=== PATIENT | male | born 1945 | race Caucasian/White ===

== ENCOUNTER 2020-09-11 18:29 | Observation (INO) | payer OTHER, SELFPAY ==
[2020-09-11] VITALS (9 sets, daily range): BP systolic 120–163; BP diastolic 63–95; PULSE 54–90; RESP 16–26; TEMP 36.3–36.6; O2SAT 95–98; BMI 34.4
--- NOTE | ~2020-09-11 | XR_ITS ---
EXAMINATION: XR hand LT min 3V EXAM DATE: 09/11/2020 19:36 INDICATION: fall; syncopal episode; pain palmar side Lt hand . Initial encounter. TECHNIQUE: Left hand frontal, frontal with ulnar deviation, oblique and lateral projections obtained and reviewed. There is no prior study for comparison. 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 The scapholunate joint space is widened, at least partial dissociation with capitate se ttling. Lateral projection demonstrates abnormal lunate orientation, dorsal intercalated segmental in stability (DISI). This is most likely chronic. Mild to moderate triscaphe and 1st carpometacarpal pr imary osteoarthritis. There is lucency in the distal aspect of the radius at the radiocarpal joint, could be sequela from a n old injury but can't exclude acute fracture. This is seen on the oblique projection for clinical co rrelation, finding indicated. IMPRESSION: 1. Distal radial lucency, age indeterminate fracture. 2. Chronic findings as above. Reviewed, dictated and finalized at location A.
--- NOTE | ~2020-09-11 | XR_ITS ---
EXAMINATION: XR hip RT min 3V w AP pelvis EXAM DATE: 09/11/2020 19:37 INDICATION: Fall, syncope. Right hip pain, replacement. Initial encounter. TECHNIQUE: Right hip frontal, crosstable lateral and 'frog-leg' projections for interpretation. Front al projection pelvis. There is no prior study for comparison. FINDINGS: There is an intact right hip arthroplasty. Surgical changes overlying the left inguinal can al. There is moderate left hip primary osteoarthritis. There are no acute pelvic fractures or disloca tions identified. There is no subcutaneous gas. The soft tissue is unremarkable. There are no rad iopaque foreign bodies. IMPRESSION: Intact right hip arthroplasty. Reviewed, dictated and finalized at location A.
--- NOTE | ~2020-09-11 | CT_ITS ---
EXAMINATION: CT brain wo con, CT cervical spine wo con EXAM DATE: 09/11/2020 19:07 (accession [id number]), 09/11/2020 19:08 (accession [id number]) INDICATION: Fall, head injury. TECHNIQUE: Spiral CT of the head was performed without contrast. Axial, coronal and sagittal images were reviewed. Spiral CT of the cervical spine was performed without contrast. Axial images were rev iewed. Coronal and sagittal reformatted images were also reviewed. The dose-length product (DLP) fo r this examination was 681.00 (accession [id number]), 511.46 (accession [id number]) mGy-cm. The exposure was tailored according to patient size, and iterative reconstruction (ASIR) was used as additional dose reduction technique. There is no prior study for comparison. FINDINGS: HEAD CT: There is small hypodensity in the anterior limb of the left internal capsule, probably an ol d lacunar infarction. There is no acute intraparenchymal hemorrhage. No evidence of intraparenchymal brain mass lesion. No evidence of acute infarction. There is mild periventricular and subcortical h ypodensity, nonspecific but probably related to small vessel ischemic disease. There is mild to mod erate prominence of the sulci and ventricles related to cerebral atrophy. There is intracranial car otid arteriosclerosis. There is no mass effect or midline shift. There is no obstructive hydrocepha avinash suspected. There are no extra-axial collections. There are no acute calvarial fractures. The o rbits are unremarkable. Soft tissue is unremarkable. The visualized sinuses and mastoid air cells a re well aerated. CERVICAL CT: There is no evidence of acute cervical fracture. The odontoid process is intact. Pre-d ens space is normal. Prevertebral soft tissue is normal. There are no soft tissue abnormalities maria isabel ntified. There is no disc space widening or traumatic vertebral body subluxation suspected. Moderat e to severe loss of disc height at C5-6 and 6-7. Overall moderate cervical arthropathy. A detailed l evel by level evaluation of spondylosis can be added as addendum if requested. Goiter. IMPRESSION: 1. No acute intracranial findings or cervical fracture. 2. Age-related intracranial findings. 3. Cervical spondylosis. Reviewed, dictated and finalized at location A. IMPRESSION: 1. No acute intracranial findings or cervical fracture. 2. Age-related intracranial findings. 3. Cervical spondylosis.
--- NOTE | ~2020-09-11 | CT_ITS ---
EXAMINATION: CT lumbar spine jerel gillis EXAM DATE: 09/11/2020 19:12 INDICATION: Fall, low back pain. TECHNIQUE: Spiral CT lumbar spine was performed without contrast. Axial, coronal and sagittal images of the lumbar spine were reviewed. The dose-length product (DLP) for this examination was 1403.31 mGy -cm. The exposure was tailored according to patient size (auto mA exposure control), and iterative r econstruction (ASIR) was used as additional dose reduction technique. There is no prior study for co mparison. FINDINGS: Sacroiliac joints are intact. There is no evidence of acute lumbar fracture. Vertebral body heights are maintained. There is no disc space widening or traumatic vertebral body subluxation suspected. P araspinal soft tissue is unremarkable. There is moderate to severe disc disease at L4-5, mild to mod erate at the other lumbar levels. There is 3 mm retrolisthesis L4 on L5. L5-S1 has moderate to severe facet arthropathy, moderate at the 2 levels above. There is severe central canal stenosis at L3-4, m oderate to severe at L4-5. Fluid density renal lesions, imaged portions are consistent with cysts. S igmoid diverticulosis. A detailed level by level evaluation of spondylosis can be added as addendum if requested. IMPRESSION: 1. No acute lumbar findings. 2. Spondylosis with L3-4 severe central canal stenosis, and moderate to severe at L4-5. Reviewed, dictated and finalized at location A.
--- NOTE | ~2020-09-11 | XR_ITS ---
EXAMINATION: XR shoulder RT min 2V EXAM DATE: 09/11/2020 19:36 INDICATION: Fall; syncopal episode, ant Rt shoulder pain . Initial encounter. TECHNIQUE: The following right shoulder projections obtained: frontal projection with internal rotati on, frontal projection with external rotation, Grashey, and scapular Y view (4+ views). There is no prior study for comparison. FINDINGS: No evidence of right shoulder rotator cuff calcific tendinosis. There is mild acromioclavi cular joint primary osteoarthritis. There are no acute fractures or dislocations identified. There i s no subcutaneous gas. The soft tissue is unremarkable. There are no radiopaque foreign bodies. IMPRESSION: 1. XR shoulder RT min 2V exam without acute osseous findings. Reviewed, dictated and finalized at location A.
--- NOTE | 2020-09-11 18:52 | ECG_ITS ---
Measurements Intervals [place] Rate: 56 P: 79 UT: 260 QRS: -44 QRSD: 108 T: 30 QT: 436 QTc: 422 Interpretive Statements SINUS OR ECTOPIC ATRIAL BRADYCARDIA WITH FIRST DEGREE AV BLOCK LEFT AXIS DEVIATION BASELINE ARTIFACT- I, II, AVR, AVF, V1-V6 ABNORMAL ECG Electronically Signed On 09-12-2020 6:59:28 CDT by Rick Aguillon D.O.
--- NOTE | 2020-09-11 19:45 | ED.GENADULT ---
HPI - General Adult General Chief complaint: Fall Stated complaint: fall- Time Seen by Provider: 09/11/20 18:31 Source: patient, family and RN notes reviewed Mode of arrival: ambulatory Limitations: no limitations History of Present Illness HPI narrative: Patient is 75-year-old male who presents to emergency department for evaluation of having fallen while getting out of the shower notes that he struck his head believes he may have been unconscious for roughly 30 minutes. Patient presents to emergency department noting mild headache where he has a contusion to the forehead with cervical and lumbar back discomfort as well as right shoulder pain noting that he believes he may have dislocated his shoulder which reduced when he moved his arm. Patient also notes mild discomfort to the left hand and to the right hip. Patient notes prior to this fall he had felt fine denies recent illness or other injury or trauma. Patient lives at home by himself. Patient notes he has been able to stand and ambulate since the fall. Is not sure as to whether or not the patient may have actually sustained syncope Related Data Allergies Allergy/AdvReac Type Severity Reaction Status Date / Time No Known Allergies Allergy Verified 09/11/20 21:01 Review of Systems Review of Systems: All systems reviewed & are unremarkable except as noted in HPI and below PMFSH Past Medical History Medical History (Updated 09/11/20 @ 21:11 by Srini Duckworth PA-C) History of hypertension Hyperlipidemia Surgical History Surgical History (Updated 09/11/20 @ 19:49 by Srini Duckworth PA-C) History of right hip replacement Social History Social History (Updated 09/11/20 @ 19:49 by Srini Duckworth PA-C) Smoking status: Never smoker Exam Narrative: Exam Narrative: GENERAL: Well-appearing, well-nourished, and in no acute distress. HEAD: Normocephalic, atraumatic. EYES: PERRLA and EOMI. ENT: Nares clear, no rhinorrhea or epistaxis. Mucous membranes moist. NECK: Supple. No adenopathy or masses. CHEST: Clear to auscultation. No respiratory distress. No wheezes rales or rhonchi HEART: Regular rate and rhythm. No murmur heard. Normal peripheral pulses. ABDOMEN: Soft, nontender, nondistended EXTREMITIES: Normal range of motion. No edema. Midline cervical and lumbar tenderness. No thoracic tenderness. Tenderness of the right shoulder right hip and left hand. Remainder of extremities palpated nontender SKIN: Warm, dry, no rash. NEURO: No focal deficits. Alert and oriented x3. Neurovascularly intact. Cranial nerves II through XII grossly intact. Normal speech. PSYCH: Normal mood and affect. Course Course Emergency Course: Patient was evaluated in the emergency department the only finding is a possible wrist injury patient will be placed in a splint referred to his surgeon for follow-up patient has had bradycardia it is felt safest that the patient should be observed overnight on telemetry given that he could potentially have had syncope. Patient agrees with this patient has been hydrated hemodynamically stable at this time ABCs and vital signs intact and stable Consultations Consultation #1: Discussed case with hospitalist who is agreed to accept the patient would like cardiology consult for the morning Date: 09/11/20 Time: 21:42 Vital Signs Vital signs: Vital Signs Temperature 97.7 F 09/11/20 18:30 Pulse Rate 64 09/11/20 18:30 Respiratory Rate 16 09/11/20 18:30 Blood Pressure 137/83 09/11/20 18:30 Pulse Oximetry 96 09/11/20 18:30 Temperature 97.9 F 09/11/20 20:48 Pulse Rate 56 L 09/11/20 21:00 Respiratory Rate 21 H 09/11/20 21:00 Blood Pressure 163/95 H 09/11/20 21:00 Pulse Oximetry 95 09/11/20 21:00 Medical Decision Making [facility] Narrative Medical decision making narrative: Patient was evaluated after having possible mechanical versus syncopal event patient was down for prolonged period no high risk changes in
[2020-09-11 20:27] LABS: Basophils Absolute Auto 0.1 K/mm3 (0.0-0.1); Basophils Percent Auto 0.6 % (0.2-1.2); Eosinophils Absolute Auto 0.2 K/mm3 (0-0.3); Eosinophils Percent Auto 2.4 % (0-4.4); Hematocrit 40.1 % (42.0-52.0); Immature Granulocyte Absolute 0.05 K/mm3 (0.00-0.031); Immature Granulocyte Percent A 0.5 % (0-0.5); Immature Platelet Fraction Pct 3.7 % (0.9-11.2); Lymphocytes Absolute Auto 2.26 K/mm3 (0.9-3.2); Lymphocytes Percent Auto 24.3 % (18.3-44.2); Mean Corpuscular HGB Conc 34.9 g/dl (32-36); Mean Corpuscular Hemoglobin 34.3 pg (26-34); Mean Corpuscular Volume 98.3 fl (80-100); Mean Platelet Volume 9.5 fl (7.4-10.4); Monocytes Absolute Auto 0.8 K/mm3 (0.1-0.6); Monocytes Percent Auto 8.1 % (2.6-8.5); Neutrophils Percent Auto 64.1 % (45.5-73.1); Platelet Count Result 163 k/mm3 (150-375); Red Blood Count 4.08 M/mm3 (4.6-6.20); Red Cell Distribution Width 11.8 % (11.5-14.5); White Blood Count 9.3 K/mm3 (4.5-10.0)
[2020-09-11 20:35] LABS: Alanine Aminotransferase 18 U/L (4-50); Albumin Level 3.5 g/dL (3.5-5.1); Alkaline Phosphatase 41 U/L (38-126); Anion Gap 2 mmol/L (8-16); Aspartate Amino Transferase 28 U/L (17-59); Bilirubin,Total 0.4 mg/dL (0.2-1.3); Blood Urea Nitrogen 19 mg/dL (9-20); Calcium 8.5 mg/dL (8.4-10.2); Carbon Dioxide 32 mmol/L (22-30); Chloride 106 mmol/L (98-107); Creatine Kinase 124 U/L (55-170); Estimated CRCL calculation 69 ml/min; Estimated Glomerular Filt Rate > 60; Glucose 126 mg/dL (75-110); INR 0.9; Potassium 3.7 mmol/L (3.4-5.0); Prothrombin Time 12.8 Seconds (11.1-14.7); Sodium 140 mmol/L (137-145)
[2020-09-11 20:36] LABS: Partial Thromboplastin Time 22.9 SECONDS (22.3-36.8)
[2020-09-11 20:47] LABS: Troponin I < 0.012 ng/mL (0.000-0.034)
--- NOTE | 2020-09-11 21:01 | PC.NURSE ---
C-Collar in place on this RN's arrival, and remains in place. pt resting in bed without complaints. call light in reach.
--- NOTE | 2020-09-11 21:17 | PC.NURSE ---
Pt's C-Collar removed by GONZÁLEZ Mao.
[2020-09-11 23:30] LABS: Add Urine Microscopic? YES; Appearance Urine Cloudy (Clear); Bacteria Urine Trace /hpf; Bilirubin Urine Negative (Negative); Blood Urine Negative (Negative); Color Urine Yellow (Yellow); Glucose Urine UA 1+ mg/dL (Negative); Ketones Urine Negative (Negative); Leukocyte Esterase Ur Negative LEU/UL (Negative); Mucus Urine Rare /lpf; Nitrate Urine Negative (Negative); Protein Urine 1+ mg/dL (Negative); RBC Urine 0-2 /hpf (0-2); Specific Grav Ur 1.027 (1.001-1.035); WBC Urine 0-3 /hpf
--- NOTE | 2020-09-11 23:38 | ADMGEN ---
This patient, Kelvin Salas, was admitted to Medical Room 251-01. Patient/family oriented to hospital policies and general routines including ID bracelet, bed and alarms, visiting hours, pain management, procedures, bathroom and other care routines, personal items, smoking policy, room service/diet, and visiting hours. Information on how to activate the Rapid Response Team has been discussed. Patient/Family are encouraged to report perceived risks to care and to ask questions if they do not understand what they are told or what they should do.
[2020-09-12] VITALS (7 sets, daily range): BP systolic 144–153; BP diastolic 72–79; PULSE 55–73; RESP 16–20; TEMP 36.8; O2SAT 93–97
[2020-09-12] MEDS: LACTATED RINGERS 1,000 ML 125 ML IV CONT (00:04)
--- NOTE | 2020-09-12 00:32 | PM.IMHP ---
H&P: HPI History of Present Illness Date/Time: 09/12/20 00:32 Chief Complaint: fall Narrative: Patient is 75-year-old male who presents after two falls this afternoon. he states he was going to the bathroom when he slipped and fell forward and hit his head. he does not remember anything after that and woke up approximately about 30-45 Mins. he hit his head and is sore at head. he was also sore in his left hand and right shoulder was sore too. When he tried to get up he felt his shoudler popped but it got back again. when he tried to get out of the shower he slipped again and fell back on the water. he did not hit anythign this time. he has been feeling okay since then but wanted to be checked out and hence came to the ED. he denies having any chest pain or sob. no fever, chils. he is little sore in his right shoulder, neck and his head. no nausea, vomiting, abdominal pain. Review of Systems Review of Systems: Narrative: - CONSTITUTIONAL: Denies weight loss, fever and chills. - HEENT: Denies changes in vision and hearing - RESPIRATORY: Denies SOB and cough. - CV: Denies palpitations and CP. - GI: Denies abdominal pain, nausea, vomiting and diarrhea. - : Denies dysuria and urinary frequency. - MSK: reports myalgia and joint pain. - SKIN: Denies rash and pruritus. - NEUROLOGICAL: reprots headache and denies syncope. - PSYCHIATRIC: Denies recent changes in mood. Denies anxiety and depression. All systems reviewed & are unremarkable except as noted in HPI and below Constitutional: Constitutional: Reports fatigue and Reports weakness Neurologic: Reports weakness Endocrine: Endocrine: Reports fatigue [facility] Past Medical History Medical History (Updated 09/12/20 @ 00:47 by Louis Gee MD) History of hypertension Hyperlipidemia Surgical History Surgical History (Updated 09/11/20 @ 19:49 by Srini Duckworth PA-C) History of right hip replacement Family History Family History (Updated 09/11/20 @ 23:41 by Deanna Rogers RN) Father Cerebrovascular accident Chronic obstructive pulmonary disease Mother Breast cancer Social History Social History (Updated 09/11/20 @ 19:49 by Srini Duckworth PA-C) Smoking status: Never smoker Alcohol intake: never Substance use: never Gender identity (if verbalized by the patient): Male Spiritual care concerns: No Meds Home Medications and Allergies Home Medications Medication Instructions Recorded Confirmed Type Calcium Citrate + D 1 tablet PO DAILY 09/12/20 09/12/20 History allopurinol 100 mg PO BID 09/12/20 09/12/20 History hydrocodone-acetaminophen 1 tablet PO QID 09/12/20 09/12/20 History lisinopril 20 mg PO DAILY 09/12/20 09/12/20 History propranolol 80 mg PO DAILY 09/12/20 09/12/20 History simvastatin 40 mg PO DAILY 09/12/20 09/12/20 History tamsulosin 0.4 mg PO DAILY 09/12/20 09/12/20 History Allergies Allergy/AdvReac Type Severity Reaction Status Date / Time No Known Allergies Allergy Verified 09/11/20 21:01 Vital Signs Vital Signs - 24 hr 09/11/20 18:30 09/11/20 20:48 09/11/20 20:53 Temperature 97.7 F 97.9 F Pulse Rate 64 57 L 56 L Respiratory Rate 16 16 17 Blood Pressure 137/83 Pulse Oximetry 96 98 96 09/11/20 21:00 09/11/20 21:02 09/11/20 21:26 Temperature Pulse Rate 56 L 56 L 55 L Respiratory Rate 21 H 26 H 23 H Blood Pressure 163/95 H 120/63 Pulse Oximetry 95 95 96 09/11/20 21:39 09/11/20 21:45 09/11/20 23:55 Temperature 97.3 F L Pulse Rate 57 L 54 L 90 Respiratory Rate 22 H 22 H 20 Blood Pressure 139/74 Pulse Oximetry 95 95 96 09/12/20 00:16 Temperature Pulse Rate 59 L Respiratory Rate Blood Pressure Pulse Oximetry Exam Narrative: Exam Narrative: GENERAL: The patient is well developed, not in acute distress HEENT: Nonicteric sclerae, PERRLA, EOMI. Oropharynx clear. Moist mucous membranes. Conjunctivae appear well perfused. CHEST: Chest wall is nontende
[2020-09-12] MEDS: HYDROcodone/acetaminophen (*CRX) 5-325 MG TABLET 1 TAB PO ×2 (09:11→13:56)
[2020-09-12] MEDS: SIMVASTATIN 20 MG TABLET 40 MG PO (09:32)
[2020-09-12] MEDS: allopurinoL 100 MG TABLET PO (09:33)
[2020-09-12] MEDS: lisinopriL 20 MG TABLET PO (09:33)
[2020-09-12] MEDS: TAMSULOSIN HCL 0.4 MG CAPSULE PO (09:33)
[2020-09-12] MEDS: PROPRANOLOL HCL 40 MG TABLET 80 MG PO (09:33)
[2020-09-12] MEDS: FAMOTIDINE 20 MG/2 ML VIAL IV PUSH (09:34)
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
--- NOTE | 2020-09-12 13:52 | PM.DS ---
DS: Admitting Diagnosis Admitting Diagnosis Admitting Diagnosis: Fall DS: Discharge Diagnosis Discharge Diagnosis (1) Fracture of wrist: Code(s): S62.109A - Fracture of unspecified carpal bone, unspecified wrist, initial encounter for closed fracture Status: Deleted (2) Dislocation of shoulder region: Code(s): S43.006A - Unspecified dislocation of unspecified shoulder joint, initial encounter Status: Deleted (3) Accident due to mechanical fall without injury: Code(s): W19.XXXA - Unspecified fall, initial encounter Status: Acute (4) Head injury, closed, with LOC of unknown duration: Code(s): S06.9X9A - Unspecified intracranial injury with loss of consciousness of unspecified duration, initial encounter Status: Acute (5) Cervical spondylosis: Code(s): M47.812 - Spondylosis without myelopathy or radiculopathy, cervical region Status: Acute (6) History of hypertension: Code(s): Z86.79 - Personal history of other diseases of the circulatory system Status: Inactive (7) Hyperlipidemia: Code(s): E78.5 - Hyperlipidemia, unspecified Status: Inactive DS: Summary Hospital Course Reason for hospitalization: Chief Complaint: fall Narrative: Patient is 75-year-old male who presents after two falls this afternoon. he states he was going to the bathroom when he slipped and fell forward and hit his head. he does not remember anything after that and woke up approximately about 30-45 Mins. he hit his head and is sore at head. he was also sore in his left hand and right shoulder was sore too. When he tried to get up he felt his shoudler popped but it got back again. when he tried to get out of the shower he slipped again and fell back on the water. he did not hit anythign this time. he has been feeling okay since then but wanted to be checked out and hence came to the ED. he denies having any chest pain or sob. no fever, chils. he is little sore in his right shoulder, neck and his head. no nausea, vomiting, abdominal pain. 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 does not suspect syncopal episode rather it was mechanical fall, and also has fracture of the left wrist seen by orthopedic surgeon and recommended splint, patient was to follow-up with his primary care at [facility], was seen by PT, he is clinically stable will discharge the patient home Status at Discharge Functional status at discharge: independent ambulation Overall status at discharge: patient is back to baseline Time Spent with Patient Time attestation: Total time spent providing and/or coordinating discharge services: Patient was seen and examined at the time of the discharge Condition at discharge is stable Code status: Full code. Time spent preparing discharge summary, discharge medications, discussing discharge planning with porter sample case and patient is 35 minutes. Time spent: Greater than 30 minutes Exam Narrative: Exam Narrative: Patient is comfortable, NAD HEENT: eyes are clear and none icteric LUNGS:CTA HEART: RR S1S2 ABD: BS+, Soft and nontender Lower extremities: no edema MS: Left arm and wrist in splint SKIN: nonjaundiced Neuro: grossly intact. DS: Data Data Completed and Pending Labs on day of discharge: Labs from last 24 hours 09/11/20 09/11/20 09/11/20 23:18 20:18 20:18 WBC RBC Hgb Hct MCV MCH MCHC RDW Plt Count MPV Immature Gran % (Auto) Neut % (Auto) Lymph % (Auto) [place] % (Auto) Eos % (Auto) Baso % (Auto) Lymph # (Auto) [place] # (Auto) Eos
[2020-09-12] MEDS: POTASSIUM CHLORIDE 20 MEQ TABLET 40 MEQ PO (13:56)
== END 2020-09-12 15:35 | disposition home or self-care (01) ==
LOC: ANHED 21:11 → ANH2MED 09-12 00:22
PROVIDERS: Emergency Medicine Emergency Medical Services; Admitting Provider Internal Medicine; Emergency Provider Family Medicine; Visit Provider Family Medicine
DX: S06.9X9A Unspecified intracranial injury with loss of consciousness of unspecified duration, initial encounter (principal); M19.132 Post-traumatic osteoarthritis, left wrist; S43.004A Unspecified dislocation of right shoulder joint, initial encounter; W19.XXXA Unspecified fall, initial encounter; I10 Essential (primary) hypertension; E78.5 Hyperlipidemia, unspecified; E87.6 Hypokalemia; M47.816 Spondylosis without myelopathy or radiculopathy, lumbar region; R55 Syncope and collapse; R00.1 Bradycardia, unspecified; Z96.641 Presence of right artificial hip joint
CPT/HCPCS: 29125; 36415; 70450; 72125; 72131; 73030; 73130; 73502; 80053; 81001; 82550; 84484; 85025; 85055; 85610; 85730; 93005; 96361; 96365; 96374; 97161; 97165; 99285; A9270; G0378; J0131; J7120